=== PATIENT | female | born 2005 | race Native Hawaiian/Other Pacific Islander ===

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

== ENCOUNTER 2023-06-01 21:24 | Emergency (ER) | payer BC, SELFPAY ==
[2023-06-01 21:41] VITALS: BP 120/82; PULSE 89; RESP 16; TEMP 36.3; O2SAT 98; BMI 25.7
--- NOTE | 2023-06-01 21:56 | ED_ITS ---
HPI - Skin/Abscess/Foreign Bdy General Time Seen by Provider: 21:56 Date Seen: 06/01/23 Chief complaint: Skin/Abscess/Foreign Body Stated complaint: tampon stuck Time Seen by Provider: 06/01/23 21:56 Source: patient and RN notes reviewed Mode of arrival: ambulatory Limitations: no limitations History of Present Illness HPI narrative: Patient is a very pleasant 18-year-old female previously healthy currently menstruating who comes to the emergency room with worries regarding retained tampon. Patient notes that when she took her tampon out which had been placed at approximately 1600 hours or 6 hours ago it seemed like there was part of it missing. Was not sure at 1st and thus she took another tampon and looked and it seems like there was part of the padding missing. She has not been able to find this in her vagina. And thus she comes to the emergency room. She denies fall odor, vomiting, abdominal pain. She is sexually active but has never had a p elvic exam. Related Data Home Medications Medication Instructions Recorded Confirmed Unobtainable 03/12/23 03/12/23 Allergies Allergy/AdvReac Type Severity Reaction Status Date / Time No Known Drug Allergies Allergy Verified 03/12/23 15:54 Review of Systems Narrative: No vomiting, abdominal pain, PFSH PFSH Social History Smoking Status: Never smoker Exam Narrative: Exam Narrative: Patient is a very pleasant 18-year-old female. No acute distress. No abdominal discomfort. Normal female external genitalia. Will after discussion and explanation regarding the pelvic exam , the small speculum is inserted Without difficulty. I do not note any foreign body or tampon. Cervix is well visualized in all aspects with a small amount of blood from the os. I do not note any tampon at this time. Const: Vital Signs, click to edit/add: Vital Signs - 24 hr 06/01/23 21:41 Temperature 97.4 F L Pulse Rate [Pulse Oximeter] 89 Respiratory Rate 16 Blood Pressure [Ri ght Upper Arm] 120/82 Pulse Oximetry 98 Oxygen Delivery Me thod Room Air Documenting provider has reviewed patient's vital signs: yes Course Vital Signs Vital signs: Initial Vital Signs Temperature 97.4 F L 06/01/23 21:41 Temperature Source Temporal Artery Scan 06/01/23 21:41 Pulse Rate 89 06/01/23 21:41 Pulse Rhythm Regular 06/01/23 21:41 Respiratory Rate 16 06/01/23 21:41 Blood Pressure 120/82 06/01/23 21:41 Blood Pressure Mean 94 06/01/23 21:41 Blood Pressure Position Semi-Fowlers 06/01/23 21:41 Pulse Oximetry 98 06/01/23 21:41 Oxygen Delivery Method Room Air 06/01/23 21:41 Vital Signs Temperature 97.4 F L 06/01/23 21:41 Pulse Rate 89 06/01/23 21:41 Respiratory Rate 16 06/01/23 21:41 Blood Pressure 120/82 06/01/23 21:41 Pulse Oximetry 98 06/01/23 21:41 Oxygen Delivery Method Room Air 06/01/23 21:41 Temperature 97.4 F L 06/01/23 21:41 Pulse Rate 89 06/01/23 21:41 Respiratory Rate 16 06/01/23 21:41 Blood Pressure 120/82 06/01/23 21:41 Pulse Oximetry 98 06/01/23 21:41 Oxygen Delivery Method Room Air 06/01/23 21:41 MDM - Skin/Abscess/Foreign Bdy MDM Narrative Medical decision making narrative: 1. For foreign body check-no obvious tampon at this time. I did state to patient that there is still a possibility that I am not seeing this. However I do use the clear speculum and I do not note a tampons presence. At this time I ask patient to use pads throughout the remainder of her. . If she should develop abdominal pain, a fall odor, unusual discharge she will need to be seen again and checked for foreign body. She understands this. 2. Disposition -home at this time. Return as needed. Discharge Plan Discharge Clinical Impression: Retained tampon not found on examination Patient Disposition: Home, Self-Care Condition: Improved Additional Instructions: tonight I did not find any remnants of a tampon. I could visualize her cervix and around the cervix and did not see anything. There is a slight possibility that you still have a tampon in place so I would ask that you only use a pad over the next few days of your period. if there is a retained tampon you will likely developed foul odor from the vaginal area along with some drainage. If this would occur please seek medical attention for another evaluation and recheck. Prescriptions: No Action Unobtainable Follow Up/Referrals: Carlos Hale MD [Primary Care Provider] - Stand Alone Forms: [employer] Info Instructions
[2023-06-01 22:50] VITALS: BP 115/74; PULSE 74; RESP 16; TEMP 36.8; O2SAT 98
[2023-06-01 22:51] VITALS: BP 115/74; PULSE 74; RESP 16; TEMP 36.8
== END 2023-06-01 22:51 | disposition home or self-care (01) ==
LOC: ED 22:35
PROVIDERS: Emergency Provider Family Medicine; PCP Family Medicine
DX: Z71.1 Person with feared health complaint in whom no diagnosis is made (principal)
CPT/HCPCS: 99282; 99283; 99284

== ENCOUNTER 2024-04-30 22:00 | Outpatient (CLI) | payer BC, SELFPAY | END 2024-04-30 22:01 | disposition home or self-care (01) | LOC: AMB 05-05 13:46 | PROVIDERS: PCP Family Medicine; Visit Provider Family Medicine | DX: T39.1X2A Poisoning by 4-Aminophenol derivatives, intentional self-harm, initial encounter (principal); Y92.009 Unspecified place in unspecified non-institutional (private) residence as the place of occurrence of the external cause | CPT/HCPCS: A0425; A0427 ==

== ENCOUNTER 2024-11-13 00:36 | Emergency (ER) | payer BC, SELFPAY ==
--- OUTSIDE RECORDS SUMMARY | 2024-11-13 00:38 | XMS_ITS | Clinical Summary ---
Author Organization [facility] Address [place], [place] [address] Care Team Providers Care Knot Tier Name Role Phone Danilo, Mary Saldaña MD Primary Care Provider Allergies No known active allergies Medications polyethylene glycoL (MIRALAX) 17 gram/scoop powderIndicatio ns:Constipation , acute Mix 1 scoop (17 g) in liquid then take by mouth once daily. 1700 g 2 3 Active triamcinolone (ARISTOCORT; KENALOG) 0.1 % cream APPLY TOPICALLY THREE TIMES DAILY TO AFFECTED AREA OF KELOID ON EARS Active venlafaxine (EFFEXOR XR) 75 mg cp24 Extended-Releas e capsuleIndicati ons:Depression with anxiety Take 1 Capsule (75 mg) by mouth once daily with a meal. 60 Capsule 4 Active Active Problems No known active problems Immunizations Name Administration Dates Next Due DTaP 06/26/2007,08/01/2004 [id number] (Pediarix) 02/01/2004,2003,1 Dtap-5 Pertussis Antigens 06/26/2007,08/01/2004 HIB PRP-OMP (PedvaxHIB) 2003,2003 HPV 9 (Gardasil 9) 05/29/2019,05/31/2017 Hepatitis A (Peds) 07/01/2014,05/13/2013 Inactivated Polio Vaccine 06/26/2007 Influenza A (H1N1), Inactivated 09/24/2009 MENINGOCOCCAL VACCINE 2 VIAL [id number] (MENVEO) 05/29/2019,05/06/2015 MMR 06/26/2007,05/03/2004 Meningococcal Vaccine (Menactra) 05/29/2019,12/2014 Pneumococcal conj 7-Valent (Prevnar 7) 1 2003,02/01/2004,2003,08/12 Tdap 07/01/2014 Varicella Vaccine 07/03/2008,05/03/2004 Family History Medical History Relation Name Comments Asthma No Family History Cancer-breast No Family History Diabetes No Family History Heart Disease No Family History Social History Tobacco Use Types Packs/Day Years Used Date Smoking Tobacco: Never Smokeless Tobacco: Never Tobacco Cessation:Counseling Given: No Comments:no exposure Alcohol Use Standard Drinks/Week Comments No 0 (1 standard drink = 0.6 oz pur e alcohol) PHQ-2 Answer Date Recorded PHQ-2 TOTAL SCORE 4 09/12/2024 Social Connections Answer Date Recorded Frequency of Communication with Friends and Fami ly Not on file 12/20/2023 Financial Resource Strain Answer Date R ecorded Difficulty of Paying Living Expenses 3 12/19/2022 Difficulty of Paying Living Expenses Not on file 12/19/2022 Food Insecurity Answer Date Recorded Worried About Running Out of Food in the Last Ye ar 1 12/19/2022 Transportation Needs Answer Date Record ed Lack of Transportation (Medical) 1 12/19/2022 Housing Stability Answer Date Recorded Unable to Pay for Housing in the Last Year 1 12/19/2022 Comments No Sex and Gender Information Value Date Recorded Sex Assigned at Not on file Legal Sex 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 PLAN CHECKER Gender Identity Not on file Sexual Orientation Not on file Obstetrics History Last Filed Vital Signs Vital Sign Reading Time Taken Comments Blood Pressure 100/66 02/14/2023 12:46 PM CDT Pulse 83 02/14/2023 12:46 PM CDT Temperature 36.7 C (98.1 F) 01/05/2021 1:05 PM PLAN CHECKER Respiratory Rate - - Oxygen Saturation 99% 02/14/2023 12: 46 PM CDT Inhaled Oxygen Concentration - - Weight 63.9 kg (140 lb 14.4 oz) 023 12:46 PM CDT Height 160.2 cm (5' 3.07) 02/14/2023 1 2:46 PM CDT Body Mass Index 24.9 02/14/2023 12:46 PM CDT Plan of Treatment Health Maintenance Due Date Last Done Comments HIV for age 15-65 2018 Hepatitis C screening for age 18-79 2021 BMI (ht and wt on same day) for age 18+ 02/15/2024 02/14/2023, 12/19/2022, 07/06/2021 Pap test for age 21-65 2024 Tetanus booster 07/01/2024 07/01/2014 COVID-19 vaccine series ( season) 2024 06/28/2021, 05/31/2021 Influenza for age 9-49 07/06/2024 09/24/2009 Depression screening for age 12+ 09/12/2025 09/12/2024, 02/26/2024, 08/30/2023, Additional history exists Pneumococcal series for age 6-49 Aged Out 10/08/2004, 02/01/2004, 2003, Additional history exists No longer eligible based on patient's age to complete this topic Tdap Completed 07/01/2014 HPV series for age 9-26 Completed 05/29/2019, 05/31 Meningococcal series for age 11-21 Completed 05/29/2019, 05/29/2019, 05/06/2015, Additional history exists Insurance [facility] Care Teams Knot Tier Relationship Specialty Start Date End Date Mary Carrasco MD [address] [place] [address] PCP - General Family Practice 08/30/23
--- OUTSIDE RECORDS SUMMARY | 2024-11-13 00:38 | XMS_ITS | Encounter Summary ---
Author Organization [place] Address [address] [place] [address] Care Team Providers Care Waste Baler Name Role Phone Clinic, [facility] Primary Care Provider Encounter Details Date Type Department Care Team (Late st Contact Info) Description 05/02/2024 BEH Treatment Plan [facility] [place] [address], [address] [place] [phone] Tra Chanel MD [address] [place] [address] Jaime Lundberg, HIDE HOUSE SUPERVISOR Social History Tobacco Use Types Packs/Day Years Used Date Smoking Tobacco: Never Assessed AUDIT-C Answer Date Recorded Q1: How often do you have a drink containing alcohol? Never 05/01/2024 Q2: How many drinks containi ng alcohol do you have on a typical day when you are drinking? Patient does not drink Q3: How often do you have si x or more drinks on one occasion? Never 05/01/2024 PHQ-2 Answer Date Recorded PHQ-2 Score 2 05/05/2024 Adolescent Education Answer Date Record ed Getting School Help Needed Not on file 04/30 Comments No Sex and Gender Information Value Date Recorded Sex Assigned at Not on file Legal Sex Female 10:44 PM CDT Gender Identity Not on file Sexual Orientation Not on file documented as of this encounter Progress Notes * Tra Chanel MD - 05/02/2024 3:58 PM CDT Partial Hospital Program Physician Certification of Medical Necessity Patient Legal Name: Ava Olguin Patient Preferred Name: Ava Patient : 2005 Patient Attending physician: Tra Chanel MD Admission Certification: I certify the above-named patient would require inpatient psychiatric care if partial hospitalization services were not provided and that the patient requires such PHP services for a minimum of 20 hours per week. These services are provided under the care and supervision of a physician. An individualized, written plan of treatment has been created and will be periodically reviewed by the physician and the patient in concert with a multidisciplinary treatment team. From admission date: 05/05/2024 to day: 05/23/2024 Tra Chanel MD on 05/05/2024 at 11:53 AM documented in this encounter Plan of Treatment Not on file documented as of this encounter Visit Diagnoses Not on filedocumented in this encounter Additional Health Concerns Assessment Noted Time PHQ-9 Depression Total Score: 3 05/02/20 24 1:04 PM CDT documented as of this encounter Care Teams Waste Baler Relationship Specialty Start Date End Date [address] [address] PCP - General 05/01/24 documented as of this encounter
--- OUTSIDE RECORDS SUMMARY | 2024-11-13 00:38 | XMS_ITS | Clinical Summary ---
Author Organization [facility] Address [address] [address] Phone Care Team Providers Care Fire Marshal Name Role Phone Sharmila Iqbal APRN, RELAY TECHNICIAN Primary Care Provider Allergies No known active allergies Medications * This document contains information received from the source organization and may not represent a complete record from that organization. venlafaxine (Effexor-XR) 150 MG 24 hour extended release capsule Take 1 Capsule by mouth one time a day. Swallow capsule whole; do not crush or chew. Capsule may be opened and sprinkled on food. 3 Active triamcinolone acetonide (Kenalog) 0.1 % cream Apply topically three times a day. Apply to affected area: keloids on bilateral ears. 15 g 3 Active Active Problems No known active problems Immunizations Name Administration Dates Next Due COVID-19 mRNA Vaccine (Pfize r-Purple 12+ Yrs) 06/28/2021,05/31/2021 DTaP <7 years 06/26/2007,08/01/2004 [id number] (Pediarix) 02/01/2004,2003,1 Hepatitis A, Ped/Adolescent 2 dose 07/01/2014, Hib PRP OMP (PedvaxHib) 2003,2003 Human Papilloma Virus 9 05/29/2019,05/31/2017 IPV 06/26/2007 Influenza H1N1 Unspecified 09/24/2009 MMR 06/26/2007,05/03/2004 Meningococcal MCV4 (Menveo) 2 Vials 05/29/2019,0 05/06/2015 Pneumococcal Conjugate, (Prevnar)7-valent 2003,2003,2003 Tdap (7 years and older) 01/09/2024,07/01/2014 Varicella (Varivax) 07/03/2008,05/03/2004 Family History Medical History Relation Comments Breast Cancer Negative Family Hx Cardiovascular Disease Negative Family Hx Diabetes Negative Family Hx Relation Status Comments Father Alive Mother Alive Social History Tobacco Use Types Packs/Day Years Used Date Smoking Tobacco: Never Assessed Overall Financial Resource Strain (CARDIA) Answe r Date Recorded How hard is it for you to pa y for the very basics like food, housing, medical care, and heating? Not hard at all 08/14/2023 PHQ-2 Answer Date Recorded PHQ-2 Total 0 08/14/2023 Hunger Vital Sign Answer Date Recorded Within the past 12 months, y ou worried that your food would run out before you got the money to buy more. Never true 08/14/20 23 Within the past 12 months, t he food you bought just didn't last and you didn't have money to get more. Never true 08/14/2023 PRAPARE - Transportation Answer Date Re corded In the past 12 months, has l ack of transportation kept you from medical appointments or from getting medications? No 08/05 In the past 12 months, has l ack of transportation kept you from meetings, work, or from getting things needed for daily living? No 08/14/2023 IP Custom Utilities ([employer]) Answer Date Recorded How hard is it for you to pa y for the very basics like food, housing, medical care, and heating? 5 08/14/2023 IP Custom IPV Answer Date Recorded Do you feel UNSAFE in any of your personal relationships with your family members or any other acquaintances? No 2023 Comments No Sex and Gender Information Value Date Recorded Sex Assigned at Not on file Legal Sex Female 9:52 AM CDT Gender Identity Female 08/09/2023 9:52 AM CDT Sexual Orientation Not on file Obstetrics History Last Filed Vital Signs Vital Sign Reading Time Taken Comments Blood Pressure 121/75 01/09/2024 10:51 PM RECREATIONAL THERAPY AIDE Pulse 68 01/09/2024 10:51 PM RECREATIONAL THERAPY AIDE Temperature 36.8 C (98.2 F) 01/09/2024 10:51 PM RECREATIONAL THERAPY AIDE Respiratory Rate 16 01/09/2024 10:51 PM RECREATIONAL THERAPY AIDE Oxygen Saturation 99% 01/09/2024 10:51 PM RECREATIONAL THERAPY AIDE Inhaled Oxygen Concentration - - Weight 68 kg (150 lb) 01/09/2024 10:53 PM RECREATIONAL THERAPY AIDE Height 162.6 cm (5' 4) 01/09/2024 10:53 PM RECREATIONAL THERAPY AIDE Body Mass Index 25.75 01/09/2024 10:53 PM RECREATIONAL THERAPY AIDE Plan of Treatment Health Maintenance Due Date Last Done Comments Cervical Cancer Screening 2003 Last pap w/ HPV Testing 2003 Last pap w/o HPV Testing 2003 Chlamydia Screening 2019 COVID-19 Vaccine ( season) 2024 06/28/2021, 05/31/2021 Influenza Vaccine Seasonal (Standing Order) (#1) 2024 09/24/2009 CHILD AND TEEN CHECKUP AGE 3-20 YRS 08/14/2024 08/14/2023, 12/29/2021 TETANUS (Standing Order) 01/08/2034 024, 07/01/2014, 06/26/2007, Additional history exists Hepatitis B Vaccine (Standing Order) Completed 02/01/2004, 2003, 2003 Pneumococcal/PCV20 Vaccine: Pediatrics (2-5 yrs) and At-Risk Patients (6-64 yrs) (Standing Order) Aged Out 02/01/2004, 2003, 2003 No longer eligible based on patient's age to complete this topic HPV Vaccine (Standing Order) Completed 05/29/2019, 05/31/2017 PERTUSSIS (Standing Order) Completed 01/08, 07/01/2014, 06/26/2007, Additional history exists Insurance [facility] Care Teams Fire Marshal Relationship Specialty Start Date End Date Sharmila Iqbal, DENTAL SCHEDULING COORDINATOR, RELAY TECHNICIAN [address] [place] [id number] PCP - General Family Medicine 08/14/23
--- OUTSIDE RECORDS SUMMARY | 2024-11-13 00:38 | XMS_ITS | Referral Summary ---
Author Organization [place] Address [facility] [place] [address] Care Team Providers Care Vice President Of Compliance Name Role Phone Clinic, [facility] Primary Care Provider Allergies No known active allergies Medications * This document contains information received from the source organization and may not represent a complete record from that organization. venlafaxine (EFFEXOR XR) 75 MG 24 hr capsuleIndicati ons:Major depressive disorder, recurrent severe without psychotic features (H) Take 1 capsule (75 mg) by mouth daily 30 capsule 1 05/02/2024 Active hydrOXYzine HCl (ATARAX) 25 MG tabletIndicatio ns:Generalized anxiety disorder Take 1 tablet (25 mg) by mouth every 4 hours as needed for anxiety 60 tablet 05/02/2024 Active Active Problems Problem Noted Date Diagnosed Date Recurrent major depression 05/01/2024 Generalized anxiety disorder 05/01/2024 Major depressive disorder, r ecurrent severe without psychotic features 05/01/2024 Social History Tobacco Use Types Packs/Day Years [...] on file Sexual Orientation Not on file Last Filed Vital Signs Vital Sign Reading Time Taken Comments Blood Pressure 109/65 05/05/2024 9:34 AM CDT Pulse 83 05/05/2024 9:34 AM CDT Temperature 36.6 C (97.9 F) 05/05/2024 9:34 AM CDT Respiratory Rate 16 05/05/2024 9:34 AM CDT Oxygen Saturation 99% 05/05/2024 9:34 AM CDT Inhaled Oxygen Concentration - - Weight 65.8 kg (145 lb) 05/05/2024 9:34 AM CDT Height 162.6 cm (5' 4) 05/05/2024 9:34 AM CDT Body Mass Index 24.89 05/05/2024 9:34 AM CDT Plan of Treatment Not on file Insurance [employer] [facility] Advance Directives For more information, please contact: [phone] * Full Code (Latest Code Status on File) Date Activated Date Inactivated Comments 05/01/2024 9:55 AM 05/02/2024 7:03 PM All basic an d advanced life-sustaining interventions are performed as appropriate Question Answer Comments Code status determined by: Unable to dis cuss and no AD/POLST on file; continue PREVIOUSLY ORDERED code status Care Teams Vice President Of Compliance Relationship Specialty Start Date End Date [address] [address] PCP - General 05/01/24
--- OUTSIDE RECORDS SUMMARY | 2024-11-13 00:38 | XMS_ITS | Clinical Summary ---
Author Organization [place] Address [facility] [place] [address] Care Team Providers Care Wash Test Checker Name Role Phone Clinic, [facility] Primary Care Provider Allergies No known active [...] 05/05/2024 9:34 AM CDT Plan of Treatment Health Maintenance Due Date Last Done Comments ADVANCE CARE PLANNING 2003 ANNUAL REVIEW OF HM ORDERS 2003 CHLAMYDIA SCREENING 2003 DEPRESSION ACTION PLAN 2003 YEARLY PREVENTIVE VISIT 2006 HIV SCREENING 2018 MENINGITIS B IMMUNIZATION (1 of 2 - Standard) 2019 HEPATITIS C SCREENING 2021 PAP 2024 COVID-19 Vaccine (3 - season) 2024 06/28/2021, 05/31/2021 INFLUENZA VACCINE (#1) 2024 09/24/2009 PHQ-9 11/05/2024 05/05/2024, 05/01/2024 DTAP/TDAP/TD IMMUNIZATION (8 - Td or Tdap) 01/08/2034 01/09/2024, 07/01/2014, 06/26/2007, Additional history exists RSV VACCINE (1 - 1-dose 75+ series) 2078 HEPATITIS B IMMUNIZATION Completed 004, 2003, 2003 Pneumococcal Vaccine: Pediatrics (0 to 5 Years) and At-Risk Patients (6 to 49 Years) Aged Out 10/08/2004, 02/01/2004, 2003, Additional history exists No longer eligible based on patient's age to complete this topic HPV IMMUNIZATION Completed 05/29/2019, 05/31/2017 MENINGITIS IMMUNIZATION Completed 05/29/2019, 05/06 RSV MONOCLONAL ANTIBODY Aged Out No l onger eligible based on patient's age to complete this topic Insurance [employer] [place] [employer] Advance Directives For more information, please contact: [phone] * Full Code (Latest Code Status on File) Date Activated Date Inactivated Comments 05/01/2024 9:55 AM 05/02/2024 7:03 PM All basic an d advanced life-sustaining interventions are performed as appropriate Question Answer Comments Code status determined by: Unable to dis cuss and no AD/POLST on file; continue PREVIOUSLY ORDERED code status Care Teams Wash Test Checker Relationship Specialty Start Date [facility] [address] [place] [address] PCP - General 05/01/24
[2024-11-13 00:58] VITALS: BP 121/86; PULSE 105; RESP 20; TEMP 36.7; O2SAT 99; BMI 25.7
--- OUTSIDE RECORDS SUMMARY | 2024-11-13 02:23 | XMS_ITS | Clinical Summary ---
Author Organization [place] Address [facility] [place] [address] Care Team Providers Care Manager Adult Name Role Phone Clinic, [facility] Primary Care Provider Allergies No known active [...] patient's age to complete this topic Insurance [employer] Advance Directives For more information, please contact: [phone] * Full Code (Latest Code Status on File) Date Activated Date Inactivated Comments 05/01/2024 9:55 AM 05/02/2024 7:03 PM All basic an d advanced life-sustaining interventions are performed as appropriate Question Answer Comments Code status determined by: Unable to dis cuss and no AD/POLST on file; continue PREVIOUSLY ORDERED code status Care Teams Manager Adult Relationship Specialty Start Date End [facility] [address] [place] [address] PCP - General 05/01/24
--- OUTSIDE RECORDS SUMMARY | 2024-11-13 02:23 | XMS_ITS | Referral Summary ---
Author Organization [place] Address [facility] [place] [address] Care Team Providers Care Cytogenetics Laboratory Manager Name Role Phone Clinic, [facility] Primary Care Provider Allergies No known [...] Plan of Treatment Not on file Insurance [employer] [facility] Advance Directives For more information, please contact: [phone] * Full Code (Latest Code Status on File) Date Activated Date Inactivated Comments 05/01/2024 9:55 AM 05/02/2024 7:03 PM All basic an d advanced life-sustaining interventions are performed as appropriate Question Answer Comments Code status determined by: Unable to dis cuss and no AD/POLST on file; continue PREVIOUSLY ORDERED code status Care Teams Cytogenetics Laboratory Manager Relationship Specialty Start Date End Date [address] [address] PCP - General 05/01/24
--- OUTSIDE RECORDS SUMMARY | 2024-11-13 02:23 | XMS_ITS | Encounter Summary ---
Author Organization [place] Address [address] [place] [address] Care Team Providers Care Digital Asset Manager Name Role Phone Clinic, [facility] Primary Care Provider Encounter Details Date Type Department Care Team (Late st Contact Info) Description 05/02/2024 BEH Treatment Plan [facility] [place] [address], [address] [place] [phone] Tra Chanel MD [address] [place] [address] Jaime Lundberg, DERMATOLOGIST AND DERMATOPATHOLOGIST Social History Tobacco Use Types Packs/Day Years [...] documented as of this encounter Care Teams Digital Asset Manager Relationship Specialty Start Date End Date [address] [address] PCP - General 05/01/24 documented as of this encounter
--- OUTSIDE RECORDS SUMMARY | 2024-11-13 02:23 | XMS_ITS | Clinical Summary ---
Author Organization [employer] [facility] Address [place], [place] [address] Care Team Providers Care Window Draper Name Role Phone Danilo, Mary Saldaña MD [...] Name Administration Dates Next Due DTaP 06/26/2007,08/01/2004 [id number] (Pediarix) 02/01/2004,2003,1 Dtap-5 Pertussis Antigens 06/26/2007,08/01/2004 HIB [...] on file Legal Sex 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 EMAIL DEVELOPER Gender Identity Not on file Sexual Orientation Not on file Obstetrics History Last Filed Vital Signs Vital Sign Reading Time Taken Comments Blood Pressure 100/66 02/14/2023 12:46 PM CDT Pulse 83 02/14/2023 12:46 PM CDT Temperature 36.7 C (98.1 F) 01/05/2021 1:05 PM EMAIL DEVELOPER Respiratory Rate - - Oxygen Saturation 99% [...] 05/29/2019, 05/29/2019, 05/06/2015, Additional history exists Insurance [facility] Care Teams Window Draper Relationship Specialty Start Date End Date Mary Carrasco MD [address] [place] [address] PCP - General Family Practice 08/30/23
--- OUTSIDE RECORDS SUMMARY | 2024-11-13 02:23 | XMS_ITS | Clinical Summary ---
Author Organization [facility] Address [address] [address] Phone Care Team Providers Care Neurobiologist Name Role Phone Sharmila Iqbal APRN, FRONT SERVICES AGENT Primary Care Provider Allergies No known active [...] 12+ Yrs) 06/28/2021,05/31/2021 DTaP <7 years 06/26/2007,08/01/2004 [id number] (Pediarix) 02/01/2004,2003,1 Hepatitis A, Ped/Adolescent 2 dose [...] Comments Blood Pressure 121/75 01/09/2024 10:51 PM MANAGER CAMP Pulse 68 01/09/2024 10:51 PM MANAGER CAMP Temperature 36.8 C (98.2 F) 01/09/2024 10:51 PM MANAGER CAMP Respiratory Rate 16 01/09/2024 10:51 PM MANAGER CAMP Oxygen Saturation 99% 01/09/2024 10:51 PM MANAGER CAMP Inhaled Oxygen Concentration - - Weight 68 kg (150 lb) 01/09/2024 10:53 PM MANAGER CAMP Height 162.6 cm (5' 4) 01/09/2024 10:53 PM MANAGER CAMP Body Mass Index 25.75 01/09/2024 10:53 PM MANAGER CAMP Plan of Treatment Health Maintenance Due Date [...] 06/26/2007, Additional history exists [facility] PMAP Care Teams Neurobiologist Relationship Specialty Start Date End Date Sharmila Iqbal, EQUINE INTERN, FRONT SERVICES AGENT [address] [place] [id number] PCP - General Family Medicine 08/14/23
== END 2024-11-13 02:44 | disposition left against medical advice (07) ==
LOC: ED 02:21
PROVIDERS: PCP Family Medicine
DX: Z53.21 Procedure and treatment not carried out due to patient leaving prior to being seen by health care provider (principal)

== ENCOUNTER 2024-12-05 09:06 | Day surgery (SDC) | payer BC, SELFPAY ==
[2024-12-05] VITALS (13 sets, daily range): BP systolic 93–141; BP diastolic 60–76; PULSE 67–95; RESP 10–17; TEMP 36.2–36.5; O2SAT 93–99; BMI 25.1
--- OUTSIDE RECORDS SUMMARY | 2024-12-05 09:11 | XMS_ITS | Encounter Summary ---
Author Organization [place] Address [address] [facility] [address] [place] [address] Care Team Providers Care Dry House Wheeler Name Role Phone Clinic, [facility] Primary Care Provider Encounter Details Date Type Department Care Team (Late st Contact Info) Description 05/02/2024 BEH Treatment Plan [facility] [place] [address], [address] [place] [phone] Tra Chanel MD [address] [place] [address] Jaime Lundberg, TECHNOLOGY INSTRUCTOR Social History Tobacco Use Types Packs/Day Years [...] documented as of this encounter Care Teams Dry House Wheeler Relationship Specialty Start Date End Date [address] [address] PCP - General 05/01/24 documented as of this encounter
--- OUTSIDE RECORDS SUMMARY | 2024-12-05 09:11 | XMS_ITS | Clinical Summary ---
Author Organization [place] Address [facility] [place] [address] Care Team Providers Care Earth Burner Name Role Phone Clinic, [facility] Primary Care Provider Allergies No known active [...] 01/08/2034 01/09/2024, 07/01/2014, 06/26/2007, Additional history exists ZOSTER IMMUNIZATION (1 of 2) 2053 RSV VACCINE (1 - 1-dose 75+ series) [...] patient's age to complete this topic Insurance [employer] [place] Advance Directives For more information, please contact: [phone] * Full Code (Latest Code Status on File) Date Activated Date Inactivated Comments 05/01/2024 9:55 AM 05/02/2024 7:03 PM All basic an d advanced life-sustaining interventions are performed as appropriate Question Answer Comments Code status determined by: Unable to dis cuss and no AD/POLST on file; continue PREVIOUSLY ORDERED code status Care Teams Earth Burner Relationship Specialty Start Date End Date [address] [address] PCP - General 05/01/24
--- OUTSIDE RECORDS SUMMARY | 2024-12-05 09:11 | XMS_ITS | Clinical Summary ---
Author Organization [employer] [facility] Address [place], [place] [address] Care Team Providers Care Double Back Operator Name Role Phone DaniloMary duncan MD Primary Care Provider Allergies No known [...] once daily with a meal. 60 Capsule 5 Active venlafaxine (EFFEXOR XR) 75 mg cp24 Extended-Releas e capsuleIndicati ons:Depression with anxiety Take 1 Capsule (75 mg) by mouth once daily with a meal. 60 Capsule 4 11/18/19 25 Discontinu ed(Reorder (E-cancel not sent)) Active Problems No known active problems Immunizations Name Administration Dates Next Due DTaP 06/26/2007,08/01/2004 [id number] (Pediarix) 02/01/2004,2003,1 Dtap-5 Pertussis Antigens 06/26/2007,08/01/2004 HIB [...] on file Legal Sex 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 FURNITURE CLEANER Gender Identity Not on file Sexual Orientation Not on file Obstetrics History Last Filed Vital Signs Vital Sign Reading Time Taken Comments Blood Pressure 100/66 02/14/2023 12:46 PM CDT Pulse 83 02/14/2023 12:46 PM CDT Temperature 36.7 C (98.1 F) 01/05/2021 1:05 PM FURNITURE CLEANER Respiratory Rate - - Oxygen Saturation 99% [...] 05/29/2019, 05/29/2019, 05/06/2015, Additional history exists Insurance [facility] Care Teams Double Back Operator Relationship Specialty Start Date End Date Mary Carrasco MD [address] [place] [address] PCP - General Family Practice 08/30/23
--- OUTSIDE RECORDS SUMMARY | 2024-12-05 09:11 | XMS_ITS | Referral Summary ---
Author Organization [place] Address [facility] [place] [address] Care Team Providers Care Lead Driver Name Role Phone Clinic, [facility] Primary Care Provider Allergies No known [...] Plan of Treatment Not on file Insurance [facility] Address: [id number] [place] [address] [facility] Advance Directives For more information, please contact: [phone] * Full Code (Latest Code Status on File) Date Activated Date Inactivated Comments 05/01/2024 9:55 AM 05/02/2024 7:03 PM All basic an d advanced life-sustaining interventions are performed as appropriate Question Answer Comments Code status determined by: Unable to dis cuss and no AD/POLST on file; continue PREVIOUSLY ORDERED code status Care Teams Lead Driver Relationship Specialty Start Date End Date [address] [address] PCP - General 05/01/24
--- OUTSIDE RECORDS SUMMARY | 2024-12-05 09:11 | XMS_ITS | Clinical Summary ---
Author Organization [facility] Address [address] [address] Phone Care Team Providers Care Palm And Back Forger Name Role Phone Sharmila Iqbal APRN, AREA INTELLIGENCE TECHNICIAN Primary Care Provider Allergies No known [...] 12+ Yrs) 06/28/2021,05/31/2021 DTaP <7 years 06/26/2007,08/01/2004 [id number] (Pediarix) 02/01/2004,2003,1 Hepatitis A, Ped/Adolescent 2 dose [...] Comments Blood Pressure 121/75 01/09/2024 10:51 PM INJECTION WAX MOLDER Pulse 68 01/09/2024 10:51 PM INJECTION WAX MOLDER Temperature 36.8 C (98.2 F) 01/09/2024 10:51 PM INJECTION WAX MOLDER Respiratory Rate 16 01/09/2024 10:51 PM INJECTION WAX MOLDER Oxygen Saturation 99% 01/09/2024 10:51 PM INJECTION WAX MOLDER Inhaled Oxygen Concentration - - Weight 68 kg (150 lb) 01/09/2024 10:53 PM INJECTION WAX MOLDER Height 162.6 cm (5' 4) 01/09/2024 10:53 PM INJECTION WAX MOLDER Body Mass Index 25.75 01/09/2024 10:53 PM INJECTION WAX MOLDER Plan of Treatment Health Maintenance Due Date Last Done Comments Cervical Cancer Screening 2003 Last pap w/ HPV Testing 2003 Last pap w/o HPV Testing 2003 Chlamydia Screening 2019 Meningococcal B Vaccine (Standing Order) (1 of 2 - Standard) 2019 COVID-19 Vaccine ( - season) 2024 06/28/2021, 05/31/2021 Influenza Vaccine Seasonal (Standing Order) (#1) 2024 09/24/2009 CHILD AND TEEN CHECKUP AGE 3-20 YRS 08/14/2024 08/14/2023, 12/29/2021 TETANUS (Standing Order) 01/08/2034 024, 07/01/2014, 06/26/2007, Additional history exists Hepatitis B Vaccine (Standing Order) Completed 02/01/2004, 2003, 2003 Pneumococcal/PCV20 Vaccine: Pediatrics (2-5 yrs) and At-Risk Patients (6-49 yrs) (Standing Order) Aged Out 02/01/2004, 2003, 2003 No longer eligible based on patient's age to complete this topic HPV Vaccine (Standing Order) Completed 05/29/2019, 05/31/2017 PERTUSSIS (Standing Order) Completed 01/08, 07/01/2014, 06/26/2007, Additional history exists Insurance BLUE [employer]US PMAP Care Teams Palm And Back Forger Relationship Specialty Start Date End Date Sharmila Iqbal, BOX CAR CHECKER, AREA INTELLIGENCE TECHNICIAN [address] [place] [id number] PCP - General Family Medicine 08/14/23
--- NOTE | 2024-12-05 09:21 | SUR.PREOP ---
Patient and her mom decline business systems developer. They verbalizing understanding that interpreters are available and they may request at any time.
[2024-12-05 09:33] LABS: Ur HCG Qualitative* Negative (Negative)
[2024-12-05] MEDS: SODIUM CHLORIDE 0.9 % (FLUSH) 10 ML SYRINGE IVF (09:47)
[2024-12-05] MEDS: 0.9 % SODIUM CHLORIDE 500 ML 500 ML 100 ML IV (09:50)
[2024-12-05] MEDS: LIDOCAINE 1%-EPI 1:100,000 20 ML INFILTRATI (12:03)
--- NOTE | 2024-12-05 12:40 | W.PM.ENTPROC ---
Procedure Note Date of procedure: 12/05/24 Procedure: Preoperative diagnosis right superior helical mass, left retro lobe mass left superior helical mass all probable keloid Postoperative diagnosis same Procedure excision benign mass right external helix 4 cm with layered closure, excise left helical lesion excision size 2 cm with simple closure, excision left retro lobe mass excision size 3 cm with layered closure. I injected 0.5 mL of Kenalog 40 milligram/mL to right lesion and 0.25 mL to each of the left lesions Under general endotracheal anesthesia patient was prepped and draped usual fashion. The area surrounding the right keloid was injected with 0.5 mL of 1% lidocaine 100,000 adrenaline. The keloid was excised. Unfortunately that the excisions will likely slightly deformed her superior helical rim. The keloid was excised with a small air left intact to facilitate closure. Closure was accomplished with interrupted 4-0 chromic suture subcutaneous and interrupted running 5 0 nylon in the skin. The left superior lesion was excised in identical fashion. This was a much smaller lesion. The closure was simple closure with 5 0 nylon The left inferior lesion was also excised in a similar fashion. It did abut and almost come through the inferior helix. However a layer of skin was intact. The skin was closed with it with 4-0 chromic sutures subcutaneously and running 5 0 nylon. At the end the procedure the Kenalog us described above was injected. The patient procedure was taken recovery in satisfactory dish in blood loss during procedure less than 15 mL Surgeon: Russel Baldwin MD
--- NOTE | 2024-12-05 12:54 | W.ANESCHARGE ---
Anesthesia Charges Start Date/Time Anesthesia Start Date: 12/05/24 Anesthesia Start Time: 11:42 Stop Date/Time Anesthesia Stop Date: 12/05/24 Anesthesia Stop Time: 12:55 Coding CPT Codes CPT Codes: ANESTH HEAD/NECK/PTRUNK - 80660 ([id number]) P1 - NORMAL HEALTHY PATIENT, QX - X RAY OPERATOR JAELYN W/ MED DIRECTION, QK - INTERNAL AFFAIRS INVESTIGATOR 2-4 CNCRNT ANES PROC
--- NOTE | 2024-12-05 13:30 | SUR.PHASEI ---
Patient meets anesthesia requirements for discharge from PACU
[2024-12-05] MEDS: fentaNYL 100 MCG/2 ML inj 50 MCG IVP (13:41)
--- NOTE | 2024-12-05 13:44 | W.ANESCHARGE ---
Anesthesia Charges Start Date/Time Anesthesia Start Date: 12/05/24 Anesthesia Start Time: 11:42 Stop Date/Time Anesthesia Stop Date: 12/05/24 Anesthesia Stop Time: 12:55 Coding CPT Codes CPT Codes: ANESTH HEAD/NECK/PTRUNK - 38963 ([id number]) QK - ENAMEL FINISHER 2-4 CNCRNT ANES PROC, QX - BLOCK TESTER SVC W/ MED DIRECTION, P1 - NORMAL HEALTHY PATIENT
[2024-12-05] MEDS: OXYCODONE 5 MG TABLET PO (14:20)
== END 2024-12-05 15:21 | disposition home or self-care (01) ==
LOC: OR 09:08
PROVIDERS: Anesthesiology; PCP Family Medicine; Visit Provider Otolaryngology
PROC: (CPT 11446; principal; 2024-12-05 10:30)
DX: L91.0 Hypertrophic scar (principal)
CPT/HCPCS: 11446; 12051 ×2; 11442; 11443; 00300; 81025; 88305; A9270; J0330; J1100; J2250; J2405; J2704; J3010; J3301; J7030

== ENCOUNTER 2024-12-05 20:34 | Emergency (ER) | payer BC, SELFPAY ==
--- OUTSIDE RECORDS SUMMARY | 2024-12-05 20:36 | XMS_ITS | Clinical Summary ---
Author Organization [facility] Address [address] [address] Phone Care Team Providers Care Bed Teacher Name Role Phone Sharmila Iqbal APRN, PROMOTIONS ASSOCIATE Primary Care Provider Allergies No known active [...] 12+ Yrs) 06/28/2021,05/31/2021 DTaP <7 years 06/26/2007,08/01/2004 [id number] (Pediarix) 02/01/2004,2003,1 Hepatitis A, Ped/Adolescent 2 dose [...] Comments Blood Pressure 121/75 01/09/2024 10:51 PM HERB DIGGER Pulse 68 01/09/2024 10:51 PM HERB DIGGER Temperature 36.8 C (98.2 F) 01/09/2024 10:51 PM HERB DIGGER Respiratory Rate 16 01/09/2024 10:51 PM HERB DIGGER Oxygen Saturation 99% 01/09/2024 10:51 PM HERB DIGGER Inhaled Oxygen Concentration - - Weight 68 kg (150 lb) 01/09/2024 10:53 PM HERB DIGGER Height 162.6 cm (5' 4) 01/09/2024 10:53 PM HERB DIGGER Body Mass Index 25.75 01/09/2024 10:53 PM HERB DIGGER Plan of Treatment Health Maintenance Due Date [...] exists Insurance [employer] Care Teams Bed Teacher Relationship Specialty Start Date End Date Sharmila Iqbal, GERIATRICS PHYSICIAN, PROMOTIONS ASSOCIATE [address] [place] [address] PCP - General Family Medicine 08/14/23
--- OUTSIDE RECORDS SUMMARY | 2024-12-05 20:36 | XMS_ITS | Referral Summary ---
Author Organization [place] Address [facility] [place] [address] Care Team Providers Care Warehouse Driver Name Role Phone Clinic, [facility] Primary Care Provider Allergies No known active [...] Plan of Treatment Not on file Insurance [employer] [facility] Advance Directives For more information, please contact: [phone] * Full Code (Latest Code Status on File) Date Activated Date Inactivated Comments 05/01/2024 9:55 AM 05/02/2024 7:03 PM All basic an d advanced life-sustaining interventions are performed as appropriate Question Answer Comments Code status determined by: Unable to dis cuss and no AD/POLST on file; continue PREVIOUSLY ORDERED code status Care Teams Warehouse Driver Relationship Specialty Start Date End Date [address] [address] PCP - General 05/01/24
--- OUTSIDE RECORDS SUMMARY | 2024-12-05 20:36 | XMS_ITS | Clinical Summary ---
Author Organization [place] Address [facility] [place] [address] Care Team Providers Care Page Technician Name Role Phone Clinic, [facility] Primary Care Provider Allergies No known [...] patient's age to complete this topic Insurance [employer] [place] [employer] [place] Advance Directives For more information, please contact: [phone] * Full Code (Latest Code Status on File) Date Activated Date Inactivated Comments 05/01/2024 9:55 AM 05/02/2024 7:03 PM All basic an d advanced life-sustaining interventions are performed as appropriate Question Answer Comments Code status determined by: Unable to dis cuss and no AD/POLST on file; continue PREVIOUSLY ORDERED code status Care Teams Page Technician Relationship Specialty Start Date End Date [address] [address] PCP - General 05/01/24
--- OUTSIDE RECORDS SUMMARY | 2024-12-05 20:36 | XMS_ITS | Encounter Summary ---
Author Organization [place] Address [address] [facility] [place] [address] Care Team Providers Care Administration Manager Name Role Phone Clinic, [facility] Primary Care Provider Encounter Details Date Type Department Care Team (Late st Contact Info) Description 05/02/[address] [facility] [place] [address], [address] [place] [phone] Tra Chanel MD [address] [place] [address] Jaime Lundberg, TRUCK HOP Social History Tobacco Use Types Packs/Day Years [...] documented as of this encounter Care Teams Administration Manager Relationship Specialty Start Date End Date [address] [address] PCP - General 05/01/24 documented as of this encounter
[2024-12-05 20:52] VITALS: BP 132/85; PULSE 106; RESP 20; TEMP 36.1; O2SAT 98; BMI 25.7
--- NOTE | 2024-12-05 21:23 | ED_ITS ---
HPI - General Adult General Date Seen: 12/05/24 Chief complaint: Nausea/Vomiting Stated complaint: had ear surgery today, vomiting Time Seen by Provider: 12/05/24 21:23 History of Present Illness HPI narrative: 19-year-old female with a past medical history of keloids, anxiety, presenting to the ER today for evaluation of nausea. She had surgery on her ear today to remove a keloid from the right external helix, superior rim, and 2 small keloids from her left ear. She felt well yesterday and this morning before surgery. She was discharged after your surgery today and when she got home she started to feel nauseous. She was hungry but had several episodes of nonbilious, nonbloody emesis. She was given a prescription for Zofran and try that at home, but was ineffective in controlling the nausea. She has thrown up 7 times at home. No diarrhea. Some of her retching was so forceful that she was also it little bit incontinent of urine. No other urinary symptoms such as frequency, urgency, dysuria. She is not having a fever. No trouble breathing. No cough. No sore throat. Her ears have been healing well. Related Data Home Medications ?Medication ?Instructions ?Recorded ?Confirmed venlafaxine 75 mg capsule,extended 75 mg PO DAILY 11/13/24 12/05/24 release 24 hr Previous Rx's ?Medication ?Instructions ?Recorded cephalexin 250 mg capsule 250 mg PO TID #18 caps 12/05/24 metoclopramide HCl 10 mg tablet 10 mg PO Q6H PRN nausea and 12/05/24 (Reglan) vomiting #7 tabs ondansetron 4 mg disintegrating 4 mg PO Q8H #10 tabs 12/05/24 tablet oxycodone 5 mg tablet 5 mg PO Q4H PRN pain #25 tabs 12/05/24 Allergies Allergy/AdvReac Type Severity Reaction Status Date / Time No Known Drug Allergies [facility]ergy [facility]02[facility]24 [facility] History Anxiety ?F41.9 - Anxiety disorder, unspecified (ICD-10) Depression ?F32.A - Depression, unspecified (ICD-10) Keloid scar ?L91.0 - Hypertrophic scar (ICD-10) Surgical History Status post ear surgery ?Z98.890 - Other specified postprocedural states (ICD-10) Social History (Updated 12/04/24 @ 08:56 by Roxie Rosenberg ~ CTA) Narrative: Single Student Associate Degree Exercises 3 days a week, Cradio /weights Non smoker Smoking Status: Never smoker How often do you have a drink containing alcohol: never How often do you have six or more drinks on one occasion: Never AUDIT-C Alcohol total score: 0 Non-prescribed substance use: denies use Caffeine: Yes Exam Narrative: Exam Narrative: Constitutional: Appears well-developed and well-nourished. Alert. Crying and tearful due to nausea. HENT: Head: Atraumatic. Nose: Nose normal. Ears: She has healing surgical incisions on the pinnas of both ears. No active bleeding. No erythema Mouth/Throat: Oral mucosa is clear and moist. no trismus. Pharynx normal. Tonsils symmetric. No tonsillar enlargement, erythema, or exudate. Eyes: Conjunctivae normal. EOM normal. Pupils equal, round, and reactive to light. No scleral icterus. Neck: Normal range of motion. Neck supple. No tracheal deviation present. Cardiovascular: Normal rate, regular rhythm. No gallop. No friction rub. No murmur heard. Symmetric radial artery pulses Pulmonary/Chest: Effort normal. No stridor. No respiratory distress. No wheezes. No rales. No rhonchi . No tenderness. Abdominal: Soft. Bowel sounds normal. No distension. No mass. []No tenderness. No rebound. No guarding. Musculoskeletal: RUE: Normal range of motion. No tenderness. No deformity LUE: Normal range of motion. No tenderness. No deformity RLE: Normal range of motion. No edema. No tenderness. No deformity LLE: Normal range of motion. No edema. No tenderness. No deformity Neurological: Alert and oriented to person, place, and time. Normal strength. CN II-VII intact. No sensory deficit. GCS eye subscore is 4. GCS verbal subscore is 5. GCS motor subscore is 6. Normal coordination Skin: Skin is warm and dry. No rash noted. No pallor. Normal capillary refill. Psychiatric: Normal mood. Tearful. Uncomfortable. Const: Vital Signs, click to edit/add: Vital Signs - 24 hr 12/05/24 20:52 12/05/24 22:35 Temperature 97.0 F L Pulse Rate [Left P ulse Oximeter] 106 H 91 Respiratory Rate 20 16 Blood Pressure [Ri ght Upper Arm] 132/85 118/83 Pulse Oximetry 98 95 Oxygen Delivery Me thod Room Air Room Air Course Course ED Course: Recheck-feeling much better after a nausea meds. Repeat abdominal exam reveals no ongoing tenderness. Reevaluation(s) Reevaluation #1: Recheck-doing well. Tolerated liquids, applesauce, crackers. She and her family are comfortable discharging to home. Will have her switch from Zofran to Reglan for nausea case she needs it at home. Vital Signs Vital signs: Initial Vital Signs Temperature 97.0 F L 12/05/24 20:52 Temperature Source Temporal Artery Scan 12/05/24 20:52 Pulse Rate 106 H 12/05/24 20:52 Pulse Rhythm Regular 12/05/24 20:52 Respiratory Rate 20 12/05/24 20:52 Blood Pressure 132/85 12/05/24 20:52 Blood Pressure Mean 100 12/05/24 20:52 Blood Pressure Position Sitting 12/05/24 20:52 Pulse Oximetry 98 12/05/24 20:52 Oxygen Delivery Method Room Air 12/05/24 20:52 Vital Signs Temperature 97.0 F L 12/05/24 20:52 Pulse Rate 106 H 12/05/24 20:52 Respiratory Rate 20 12/05/24 20:52 Blood Pressure 132/85 12/05/24 20:52 Pulse Oximetry 98 12/05/24 20:52 Oxygen Delivery Method Room Air 12/05/24 20:52 Temperature 97.0 F L 12/05/24 20:52 Pulse Rate 91 12/05/24 22:35 Respiratory Rate 16 12/05/24 22:35 Blood Pressure 118/83 12/05/24 22:35 Pulse Oximetry 95 12/05/24 22:35 Oxygen Delivery Method Room Air 12/05/24 22:35 Medications Administered Medications: Discontinued Medications Generic Name Dose Route Start Last Admin Trade Name Freq PRN Reason Stop Dose Admin Diphenhydramine HCl 12.5 mg 12/05/24 21:36 12/05/24 22:27 Diphenhydramine 50 Mg/Ml Inj IVP 12/05/24 21:37 12.5 mg ONCE ONE Administration Metoclopramide HCl 10 mg 12/05/24 21:36 12/05/24 22:27 Metoclopramide Hcl 5 Mg/Ml Inj IVP 12/05/24 21:37 10 mg ONCE ONE Administration Medical Decision Making MDM Narrative Medical decision making narrative: Presented to the Emergency Department with protracted nausea and vomiting that began this afternoon after she had general anesthesia for ears surgery (surgical repair of keloids on both of her ear pinna. No surgery involving her inner ear). She also has abdominal pain, which she thinks is related to muscular strain from retching.. The differential diagnosis of her symptoms includes: Appendicitis, Bowel Obstruction, Ulcer, Ischemia, Cholecystitis, Diverticulitis, Pancreatitis, UTI, kidney stone, Enteritis/Colitis, amongst many other etiologies. Laboratory testing does not reveal a cause for the patient's pain. Nausea and pain resolved with meds given here in the ER. At this point will hold off on advanced imaging. No life threatening cause or need for emergent surgery or hospital admission is detected today. Suspect this is probably nausea and vomiting related to the anesthesia. The patient was advised that if symptoms do not completely resolve within another 12-24 hours re-evaluation with primary care or return to the ED is indicated. The patient also understands that if they worsen, they should return to the ER right away. I discussed the uncertainty about the diagnosis and answered the patient and her family's questions. Return precautions discussed. Prescription for Reglan provided. Lab Data Labs: Lab Results 12/05/24 Range/Units 21:50 WBC 13.52 H (4.50-11.00) K/uL RBC 4.45 (4.00-5.20) m/uL Hgb 14.0 (12.0-16.0) gm/dL Hct 40.4 (33.0-51.0) % MCV 91 (80-100) fL MCH 32 (26-34) pg MCHC 35 (32-36) gm/dL RDW Coeff of Skyler 11.7 (11.5-15.5) % Plt Count 264 (140-440) K/uL Neut % (Auto) 92.1 H (42.0-72.0) % Lymph % (Auto) 5.6 L (20-44) % [place] % (Auto) 1.3 (0.0-11.0) % Eos % (Auto) 0.0 (0.0-7.0) % Baso % (Auto) 0.1 (0.0-3.0) % Neut # (Auto) 12.50 H (1.7-7.0) K/uL Lymph # (Auto) 0.80 L (0.90-2.90) K/uL [place] # (Auto) 0.20 (0.00-0.90) K/UL Eos # (Auto) 0.00 (0.00-0.50) K/uL Baso # (Auto) 0.00 (0.00-0.30) K/uL Abs Immat Gran (auto) 0.10 (0.00-0.30) K/uL Imm/Tot Granulo (auto) 0.9 % Sodium 135 (135-149) mmol/L Potassium 4.3 (3.6-5.1) mmol/L Chloride 102 (96-114) mmol/L Carbon Dioxide 21 (20-32) mmol/L Anion Gap 12 (7-15) mEq/L BUN 16 (5-24) mg/dL Creatinine 0.7 (0.5-1.5) mg/dL Estimated Creat Clear 109.78 Estimated GFR 126 ml/min Glucose 148 H (60-115) mg/dL Calcium 9.3 (8.4-10.6) mg/dL Total Bilirubin 0.6 (0.1-1.5) mg/dL AST 32 (12-35) U/L ALT 23 (4-35) U/L Alkaline Phosphatase 98 (40-150) U/L Total Protein 8.1 (6.0-8.3) g/dL Albumin 4.8 (3.3-5.0) g/dL Discharge Plan Discharge Clinical Impression: Postoperative vomiting Patient Disposition: Home w/ Parent or Adult Condition: Stable Instructions: Acute Nausea and Vomiting (DC) Additional Instructions: As we discussed, use the nausea medication if needed at home. Try to drink fluids and stay hydrated. At solid foods when you feel better. If you have any worsening symptoms such as fever, uncontrolled vomiting, worsening abdominal pain, or any problems come back to the ER right away to be rechecked. Prescriptions: New metoclopramide HCl [Reglan] 10 mg tablet 10 mg PO Q6H PRN (Reason: nausea and vomiting) Qty: 7 0RF No Action venlafaxine 75 mg capsule,extended release 24hr 75 mg PO DAILY cephalexin 250 mg capsule 250 mg PO TID Qty: 18 0RF ondansetron 4 mg tablet,disintegrating 4 mg PO Q8H Qty: 10 0RF oxycodone 5 mg tablet 5 mg PO Q4H PRN (Reason: pain) Qty: 25 0RF Follow Up/Referrals: Carlos Hale MD [Primary Care Provider] - Stand Alone [facility]: [facility] Info Inst[facility]
[2024-12-05 22:09] LABS: Albumin* 4.8 g/dL (3.3-5.0); Chloride* 102 mmol/L (96-114)
[2024-12-05 22:10] LABS: Potassium* 4.3 mmol/L (3.6-5.1); Sodium* 135 mmol/L (135-149)
[2024-12-05 22:12] LABS: Alanine Aminotransferase* 23 U/L (4-35); Alkaline Phosphatase* 98 U/L (40-150); Anion Gap 12 mEq/L (7-15); Aspartate Amino Transferase* 32 U/L (12-35); Bilirubin Total* 0.6 mg/dL (0.1-1.5); Blood Urea Nitrogen* 16 mg/dL (5-24); Carbon Dioxide* 21 mmol/L (20-32); Creatinine* 0.7 mg/dL (0.5-1.5); Est. Creatinine Clearance* 109.78; Estimated Glomerular Filt Rate 126 ml/min; Glucose* 148 mg/dL (60-115); Total Protein* 8.1 g/dL (6.0-8.3)
--- OUTSIDE RECORDS SUMMARY | 2024-12-05 22:12 | XMS_ITS | Encounter Summary ---
Author Organization [facility] Address [address] [place] [address] Care Team Providers Care Solar Installation Crew Supervisor Name Role Phone Clinic, [facility] Primary Care Provider Encounter Details Date Type Department Care Team (Late st Contact Info) Description 05/02/2024 BEH Treatment Plan [facility] [place] [address], [address] [place] [id number] Tar Chanel MD [address] [place] [address] Jaime Lundberg, CHILDREN'S MINISTRY DIRECTOR Social History Tobacco Use Types Packs/Day Years [...] documented as of this encounter Care Teams Solar Installation Crew Supervisor Relationship Specialty Start Date End Date [address] [address] PCP - General 05/01/24 documented as of this encounter
--- OUTSIDE RECORDS SUMMARY | 2024-12-05 22:12 | XMS_ITS | Referral Summary ---
Author Organization [facility] Address [facility] [place] [address] Care Team Providers Care Refractory Grinder Operator Name Role Phone Clinic, [facility] Primary Care Provider Allergies No known active [...] Plan of Treatment Not on file Insurance [employer]iltro [employer] [facility] Advance Directives For more information, please contact: [phone] * Full Code (Latest Code Status on File) Date Activated Date Inactivated Comments 05/01/2024 9:55 AM 05/02/2024 7:03 PM All basic an d advanced life-sustaining interventions are performed as appropriate Question Answer Comments Code status determined by: Unable to dis cuss and no AD/POLST on file; continue PREVIOUSLY ORDERED code status Care Teams Refractory Grinder Operator Relationship Specialty Start Date End Date [address] [address] PCP - General 05/01/24
--- OUTSIDE RECORDS SUMMARY | 2024-12-05 22:12 | XMS_ITS | Clinical Summary ---
Author Organization [facility] Address [address] [address] Phone Care Team Providers Care Vp Integrity Name Role Phone Sharmila Iqbal APRN, DREDGE BOAT ENGINEER Primary Care Provider Allergies No known active [...] 12+ Yrs) 06/28/2021,05/31/2021 DTaP <7 years 06/26/2007,08/01/2004 [id number] (Pediarix) 02/01/2004,2003,1 Hepatitis A, Ped/Adolescent 2 dose [...] Comments Blood Pressure 121/75 01/09/2024 10:51 PM LAUNDRY PRESS OPERATOR Pulse 68 01/09/2024 10:51 PM LAUNDRY PRESS OPERATOR Temperature 36.8 C (98.2 F) 01/09/2024 10:51 PM LAUNDRY PRESS OPERATOR Respiratory Rate 16 01/09/2024 10:51 PM LAUNDRY PRESS OPERATOR Oxygen Saturation 99% 01/09/2024 10:51 PM LAUNDRY PRESS OPERATOR Inhaled Oxygen Concentration - - Weight 68 kg (150 lb) 01/09/2024 10:53 PM LAUNDRY PRESS OPERATOR Height 162.6 cm (5' 4) 01/09/2024 10:53 PM LAUNDRY PRESS OPERATOR Body Mass Index 25.75 01/09/2024 10:53 PM LAUNDRY PRESS OPERATOR Plan of Treatment Health Maintenance Due Date [...] exists Insurance BLUE PLUS PMAP Care Teams Vp Integrity Relationship Specialty Start Date End Date Sharmila Iqbal, HOT DIP PLATER, DREDGE BOAT ENGINEER [address] [place] [id number] PCP - General Family Medicine 08/14/23
--- OUTSIDE RECORDS SUMMARY | 2024-12-05 22:12 | XMS_ITS | Clinical Summary ---
Author Organization [facility] Address [facility] [place] [address] Care Team Providers Care Jewelry Internship Name Role Phone Clinic, [facility] Primary Care Provider Allergies No known active [...] patient's age to complete this topic Insurance [employer] [place] Advance Directives For more information, please contact: [phone] * Full Code (Latest Code Status on File) Date Activated Date Inactivated Comments 05/01/2024 9:55 AM 05/02/2024 7:03 PM All basic an d advanced life-sustaining interventions are performed as appropriate Question Answer Comments Code status determined by: Unable to dis cuss and no AD/POLST on file; continue PREVIOUSLY ORDERED code status Care Teams Jewelry Internship Relationship Specialty Start Date End Date [address] [address] PCP - General 05/01/24
--- OUTSIDE RECORDS SUMMARY | 2024-12-05 22:12 | XMS_ITS | Clinical Summary ---
Author Organization [employer] [facility] Address [place], [place] [address] Care Team Providers Care Hazardous Materials Handler Name Role Phone Mary Carrasco MD Primary Care Provider Allergies No known [...] sent)) Active Problems No known active problems Encounters Date Type Department Care Team Description 12/05/2024 Lab Requisition [facility] [phone] Russel Baldwin MD from Last 3 Months Immunizations Name Administration Dates Next Due DTaP 06/26/2007,08/01/2004 [id number] (Pediarix) 02/01/2004,2003,1 Dtap-5 Pertussis Antigens 06/26/2007,08/01/2004 HIB [...] on file Legal Sex 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 MESH WORKER Gender Identity Not on file Sexual Orientation Not on file Obstetrics History Last Filed Vital Signs Vital Sign Reading Time Taken Comments Blood Pressure 100/66 02/14/2023 12:46 PM CDT Pulse 83 02/14/2023 12:46 PM CDT Temperature 36.7 C (98.1 F) 01/05/2021 1:05 PM MESH WORKER Respiratory Rate - - Oxygen Saturation 99% [...] 05/29/2019, 05/29/2019, 05/06/2015, Additional history exists Insurance [facility] Care Teams Hazardous Materials Handler Relationship Specialty Start Date End Date Mary Carrasco MD [address] [place] [address] PCP - General Family Practice 08/30/23
[2024-12-05 22:13] LABS: Calcium* 9.3 mg/dL (8.4-10.6)
[2024-12-05 22:16] LABS: Basophils Percent Auto 0.1 % (0.0-3.0); Hematocrit* 40.4 % (33.0-51.0); Immature Granulocytes Pct Auto 0.9 %; Lymphocytes Percent Auto 5.6 % (20-44); Mean Corpuscular HGB Conc 35 gm/dL (32-36); Mean Corpuscular Hemoglobin 32 pg (26-34); Mean Corpuscular Volume 91 fL (80-100); Monocytes Percent Auto 1.3 % (0.0-11.0); Neutrophils Percent Auto 92.1 % (42.0-72.0); Platelet Count* 264 K/uL (140-440); RDW Coefficient of Variation % 11.7 % (11.5-15.5); Red Blood Count* 4.45 m/uL (4.00-5.20); White Blood Count* 13.52 K/uL (4.50-11.00)
[2024-12-05 22:22] LABS: Slide Review Reflex No
[2024-12-05] MEDS: METOCLOPRAMIDE HCL 5 MG/ML INJ 10 MG IVP (22:27)
[2024-12-05] MEDS: diphenhydrAMINE 50 MG/ML inj 12.5 MG IVP (22:27)
[2024-12-05 22:35] VITALS: BP 118/83; PULSE 91; RESP 16; O2SAT 95
== END 2024-12-06 00:18 | disposition home or self-care (01) ==
PROVIDERS: Emergency Provider Emergency Medicine; PCP Family Medicine
DX: R11.2 Nausea with vomiting, unspecified (principal)
CPT/HCPCS: 36415; 80053; 85025; 96374; 96375; 99283; J1200; J2765